=== PATIENT | female | born 1970 | race Caucasian/White ===

== ENCOUNTER 2021-01-06 15:12 | Inpatient (IN) ==
[2021-01-06] MEDS ORDERED: Lidocaine -MPF 2% 5 ML VIAL ONE (19:21)
[2021-01-06] MEDS ORDERED: *HR* Succinylcholine 200 MG/10 ML VIAL IVP ONE (19:21)
[2021-01-06] MEDS ORDERED: Ondansetron 4 MG/2 ML VIAL ONE (19:21)
[2021-01-06] MEDS ORDERED: Lidocaine -MPF 4% 5 ML AMPUL ONE (19:21)
[2021-01-06] MEDS ORDERED: *HR* Propofol 200 MG/20 ML VIAL IVP ONE (19:21)
[2021-01-06] MEDS ORDERED: *HR* FentaNYL (PF) 100 MCG/2 ML VIAL ONE (19:21)
[2021-01-06] MEDS ORDERED: *HR* Meperidine 25 MG/ML SYRINGE IVP PRN (19:48)
[2021-01-06] MEDS ORDERED: *HR* FentaNYL (PF) 100 MCG/2 ML VIAL IVP PRN (19:48)
[2021-01-06] MEDS ORDERED: Albuterol 2.5 MG/3 ML NEBULIZER IH PRN (19:48)
[2021-01-06] MEDS ORDERED: Ondansetron 4 MG/2 ML VIAL IVP PRN (19:48)
[2021-01-06] MEDS ORDERED: Acetaminophen IV 1,000 MG/100 ML BAG IVPB ONE (20:26)
[2021-01-06] MEDS ORDERED: *HR* Magnesium Sulfate 1 GM/2 ML VIAL ONE (20:51)
[2021-01-06] MEDS ORDERED: *HR* Metoprolol 5 MG/5 ML VIAL IVP ONE (21:15)
[2021-01-06] MEDS ORDERED: *HR* Rocuronium Bromide 50 MG/5 ML VIAL ONE (21:16)
[2021-01-06] MEDS ORDERED: *HR* HYDROMORPHONE 2 MG/ML VIAL ONE (22:13)
[2021-01-07] MEDS: Ondansetron 4 MG/2 ML VIAL IVP SCH ×5 (00:36→23:49)
[2021-01-07] MEDS ORDERED: Dextrose Gel 15 GM/37.5 ML TUBE PO PRN ×2 (00:45)
[2021-01-07] MEDS ORDERED: *HR* Dextrose 50 % in Water (Syg) 50 ML SYRINGE IVP PRN (00:45)
[2021-01-07] MEDS ORDERED: D5% in Water 1,000 ML IVC PRN (00:45)
[2021-01-07] MEDS ORDERED: Naloxone 0.4 MG/ML INJ IVP PRN (00:45)
[2021-01-07] MEDS ORDERED: Acetaminophen 325 MG TABLET PO PRN (00:45)
[2021-01-07] MEDS: Insulin LISPRO 300 UNITS/3 ML VIAL SUBQ SCH ×5 (01:00→20:31)
[2021-01-07 01:17] LABS: Basophils % 0.2 %; Hematocrit 35.1 % (35.3-44.9); Hemoglobin 10.9 g/dL (11.5-15.4); Immature Granulocytes % 0.4 % (0-4); Lymphocytes % 8.2 %; Mean Corpuscular HGB Conc 31.1 g/dL (31.6-35.5); Mean Corpuscular Hemoglobin 30.8 pg (28.0-33.3); Mean Corpuscular Volume 99.2 fL (83.0-100.0); Mean Platelet Volume 10.3 fL (9.4-12.4); Monocytes # 0.9 K/mcL (0.0-1.3); Monocytes % 6.8 %; Neutrophils # 10.5 K/mcL (1.6-8.9); Platelet Count 250 K/mcL (140-400); Red Blood Count 3.54 M/mcL (3.82-4.97); Red Cell Distribution Width 14.2 % (11.5-14.5); Segmented Neutrophils % 84.4 %; White Blood Count 12.4 K/mcL (4.3-11.1)
[2021-01-07 01:29] LABS: INR 3.1
[2021-01-07 01:31] LABS: Activated Partial Thrombo Time 61.4 Seconds (26.0-36.0)
[2021-01-07 01:35] LABS: Alanine Aminotransferase 8 Units/L (7-52); Alkaline Phosphatase 51 Units/L (34-104); Aspartate Amino Transferase 13 Units/L (13-39); BUN/Creatinine Ratio 17 (6-26); Bilirubin,Total 1.1 mg/dL (0.3-1.0); Blood Urea Nitrogen 15 mg/dL (6-20); Calcium 8.5 mg/dL (8.6-10.3); Carbon Dioxide 21 mEq/L (23-29); Chloride 109 mEq/L (98-107); Chol/HDL Ratio 3.1 (0-4.9); Cholesterol 115 mg/dL (< 200); Glucose 125 mg/dL (70-105); HDL Cholesterol 37 mg/dL (40-59); Iron 11 mcg/dL (50-170); LDL Cholesterol,Calculated 64 mg/dL (< 100); Osmolality,Calculated 288 (280-300); Potassium 3.7 mEq/L (3.5-5.1); Sodium 138 mEq/L (136-145); Triglycerides 71 mg/dL (< 150); eGFR For African Americans > 60 (> 60); eGFR For Non-African Americans > 60 (> 60)
[2021-01-07 01:40] LABS: Estimated Average Glucose 200 mg/dl; Hemoglobin A1C 8.6 %
[2021-01-07 01:52] LABS: Ferritin 116 ng/mL (10-120)
[2021-01-07] MEDS ORDERED: Albumin 25% 25gram/100mL 25 GM/100 ML IV.SOLN IVPB ONE (01:54)
[2021-01-07 02:03] LABS: Folate > 22.3 ng/mL (3.0-16.0); Vitamin B12 145 pg/mL (250-1100)
[2021-01-07 03:47] LABS: % Iron Saturation 3 % (15-50); Transferrin 275 mg/dL (203-362)
[2021-01-07] MEDS ORDERED: Acetaminophen IV 1,000 MG/100 ML BAG IVPB ONE (05:45)
[2021-01-07] MEDS: Piperacillin/Tazobactam 3.375 GM in 0.9 % Sodium Chloride Mini Bag 100 ML IVPB SCH ×3 (08:47→23:49)
[2021-01-07] MEDS: *HR* OxyCODONE Immed Rel 5 MG TABLET PO PRN ×3 (08:47→23:49)
[2021-01-07] MEDS ORDERED: *HR* Pioglitazone 45 MG TABLET PO SCH (09:00)
[2021-01-07] MEDS: *HR* HYDROcodone/Acet 5/325 mg TABLET PO PRN ×2 (11:56→18:09)
[2021-01-07] MEDS: Cyanocobalamin (B-12) 1,000 MCG TABLET PO SCH (12:23)
[2021-01-07] MEDS: Iron Sucrose Complex 250 MG in 0.9 % Sodium Chloride 250 ML IVPB SCH (12:24)
[2021-01-07] MEDS ORDERED: Warfarin perPT PO PRN (18:00)
[2021-01-07] MEDS ORDERED: *HR* Warfarin 5 MG TABLET PO ONE (18:00)
[2021-01-07 19:07] LABS: Hemoglobin 10.2 g/dL (11.5-15.4)
[2021-01-07] MEDS ORDERED: Piperacillin/Tazobactam 3.375 GM in 0.9 % Sodium Chloride Mini Bag 100 ML IVPB ONE (20:33)
[2021-01-08] MEDS: *HR* HYDROcodone/Acet 5/325 mg TABLET PO PRN (04:57)
[2021-01-08] MEDS: *HR* OxyCODONE Immed Rel 5 MG TABLET PO PRN ×3 (06:08→22:21)
[2021-01-08] MEDS: Ondansetron 4 MG/2 ML VIAL IVP SCH ×2 (06:09→14:25)
[2021-01-08 07:24] LABS: Hematocrit 23.9 % (35.3-44.9); Mean Corpuscular HGB Conc 30.5 g/dL (31.6-35.5); Mean Corpuscular Hemoglobin 29.8 pg (28.0-33.3); Mean Corpuscular Volume 97.6 fL (83.0-100.0); Mean Platelet Volume 10.9 fL (9.4-12.4); Platelet Count 347 K/mcL (140-400); Red Blood Count 2.45 M/mcL (3.82-4.97); Red Cell Distribution Width 13.8 % (11.5-14.5); White Blood Count 15.3 K/mcL (4.3-11.1)
[2021-01-08 07:30] LABS: Hemoglobin 7.3 g/dL (11.5-15.4)
[2021-01-08 07:52] LABS: INR 4.7; Prothrombin Time 51.7 Seconds (9.4-12.1)
[2021-01-08] MEDS: Insulin LISPRO 300 UNITS/3 ML VIAL SUBQ SCH ×2 (08:04→14:26)
[2021-01-08 08:07] LABS: BUN/Creatinine Ratio 21 (6-26); Blood Urea Nitrogen 23 mg/dL (6-20); Calcium 8.9 mg/dL (8.6-10.3); Carbon Dioxide 20 mEq/L (23-29); Chloride 105 mEq/L (98-107); Glucose 172 mg/dL (70-105); Osmolality,Calculated 290 (280-300); Potassium 4.2 mEq/L (3.5-5.1); Sodium 136 mEq/L (136-145); eGFR For African Americans > 60 (> 60); eGFR For Non-African Americans 53 (> 60)
[2021-01-08] MEDS: Iron Sucrose Complex 250 MG in 0.9 % Sodium Chloride 250 ML IVPB SCH (08:08)
[2021-01-08] MEDS: Cyanocobalamin (B-12) 1,000 MCG TABLET PO SCH (08:08)
[2021-01-08] MEDS: Piperacillin/Tazobactam 3.375 GM in 0.9 % Sodium Chloride Mini Bag 100 ML IVPB SCH (08:09)
[2021-01-08] MEDS ORDERED: *HR* Phytonadione 5 MG TABLET PO STA (08:48)
[2021-01-08] MEDS ORDERED: *HR* HYDROmorphone (PF) 1 MG/ML SYRINGE IVP ONE (09:01)
[2021-01-08] MEDS ORDERED: Simethicone 80 MG TAB.CHEW PO ONE (09:02)
[2021-01-08] MEDS ORDERED: 0.9 % Sodium Chloride 250 ML ONE ×2 (09:40→18:06)
[2021-01-08 16:23] LABS: Hematocrit 19.2 % (35.3-44.9); Hemoglobin 6.3 g/dL (11.5-15.4)
[2021-01-08] MEDS ORDERED: Lidocaine HCL 4 ML Topical Solution (Laryng-O-Jet Kit Sterile Pak) TP ONE (17:42)
[2021-01-08] MEDS ORDERED: *HR* Propofol 200 MG/20 ML VIAL IVP ONE (17:42)
[2021-01-08] MEDS ORDERED: *HR* Succinylcholine 200 MG/10 ML VIAL IVP ONE (17:46)
[2021-01-08] MEDS ORDERED: Lidocaine -MPF 2% 2 ML VIAL ONE (17:46)
[2021-01-08] MEDS ORDERED: *HR* Rocuronium Bromide 50 MG/5 ML VIAL ONE (17:46)
[2021-01-08] MEDS ORDERED: *HR* Vasopressin 20 UNIT/ML VIAL ONE (18:13)
[2021-01-08] MEDS ORDERED: Albumin Human 5% 0 GM/0 ML IV.SOLN ONE (18:13)
[2021-01-08] MEDS ORDERED: *HR* Midazolam HCl 2 MG/2 ML VIAL ONE (18:36)
[2021-01-08] MEDS ORDERED: *HR* FentaNYL (PF) 100 MCG/2 ML VIAL ONE ×2 (18:36→20:26)
[2021-01-08] MEDS ORDERED: Lacri-Lube 3.5 GM TUBE ONE (18:51)
[2021-01-08] MEDS ORDERED: *HR* Etomidate 40 MG/20 ML VIAL IVP ONE (18:51)
[2021-01-08] MEDS ORDERED: Heparin 1,000 UNITS/500 mL 500 ML ONE (18:54)
[2021-01-08 19:42] LABS: ABG Base Excess -4 mEq/L (-2 to 3); ABG HCO3 21 mEq/L (21-27); ABG Oxygen Saturation 100 % (95-98); ABG PCO2 41 mmHg (35-45); ABG PH 7.33 pH Units (7.32-7.45); ABG PO2 484 mmHg (85-104); ABG TCO2 23 mEq/L (20-26)
[2021-01-08 19:43] LABS: Basophils % 0.1 %; Eosinophils % 0.1 %; Hemoglobin 7.1 g/dL (11.5-15.4); Immature Granulocytes % 1.3 % (0-4); Lymphocytes # 1.6 K/mcL (0.6-4.6); Lymphocytes % 9.8 %; Mean Corpuscular HGB Conc 30.9 g/dL (31.6-35.5); Mean Corpuscular Volume 93.9 fL (83.0-100.0); Mean Platelet Volume 10.5 fL (9.4-12.4); Monocytes # 1.9 K/mcL (0.0-1.3); Monocytes % 11.1 %; Nucleated Red Blood Cells 0.1 /100 WBC (0); Platelet Count 321 K/mcL (140-400); Red Blood Count 2.45 M/mcL (3.82-4.97); Red Cell Distribution Width 14.4 % (11.5-14.5); Segmented Neutrophils % 77.6 %; White Blood Count 16.8 K/mcL (4.3-11.1)
[2021-01-08] MEDS ORDERED: Ondansetron 4 MG/2 ML VIAL ONE (19:59)
[2021-01-08 20:02] LABS: Calcium 8.3 mg/dL (8.6-10.3); INR 4.8; Magnesium 1.9 mg/dL (1.6-2.6); Potassium 4.7 mEq/L (3.5-5.1); Prothrombin Time 52.8 Seconds (9.4-12.1)
[2021-01-08] MEDS ORDERED: 0.9 % Sodium Chloride 1,000 ML IVC SCH (20:30)
[2021-01-08] MEDS ORDERED: *HR* FentaNYL (PF) 100 MCG/2 ML VIAL IVP PRN (20:52)
[2021-01-08] MEDS ORDERED: Ondansetron 4 MG/2 ML VIAL IVP PRN (20:52)
[2021-01-08] MEDS ORDERED: Albuterol 2.5 MG/3 ML NEBULIZER IH PRN (20:52)
[2021-01-08] MEDS ORDERED: 0.9 % Sodium Chloride 500 ML ONE (21:08)
[2021-01-08] MEDS ORDERED: *HR* Dextrose 50 % in Water (Syg) 50 ML SYRINGE IVP PRN (22:57)
[2021-01-08] MEDS ORDERED: Naloxone 0.4 MG/ML INJ IVP PRN (22:57)
[2021-01-08] MEDS ORDERED: D5% in Water 1,000 ML IVC PRN (22:57)
[2021-01-08] MEDS ORDERED: Dextrose Gel 15 GM/37.5 ML TUBE PO PRN ×2 (22:57)
[2021-01-08] MEDS ORDERED: *HR* HYDROcodone/Acet 5/325 mg TABLET PO PRN (22:57)
[2021-01-08 23:10] LABS: Hematocrit 22.6 % (35.3-44.9); Hemoglobin 7.4 g/dL (11.5-15.4); Mean Corpuscular HGB Conc 32.7 g/dL (31.6-35.5); Mean Corpuscular Hemoglobin 30.2 pg (28.0-33.3); Mean Corpuscular Volume 92.2 fL (83.0-100.0); Mean Platelet Volume 10.4 fL (9.4-12.4); Platelet Count 234 K/mcL (140-400); Red Blood Count 2.45 M/mcL (3.82-4.97); Red Cell Distribution Width 14.2 % (11.5-14.5); White Blood Count 13.6 K/mcL (4.3-11.1)
[2021-01-09 00:26] LABS: INR 2.5; Prothrombin Time 27.2 Seconds (9.4-12.1)
[2021-01-09] MEDS: 0.9 % Sodium Chloride 1,000 ML IVC SCH ×2 (00:54→15:46)
[2021-01-09] MEDS: Piperacillin/Tazobactam 3.375 GM in 0.9 % Sodium Chloride Mini Bag 100 ML IVPB SCH ×4 (00:56→23:38)
[2021-01-09] MEDS: Ondansetron 4 MG/2 ML VIAL IVP SCH ×5 (00:57→23:38)
[2021-01-09] MEDS ORDERED: *HR* Heparin 5,000 UNIT/ML VIAL IVP PRN ×2 (03:11)
[2021-01-09] MEDS ORDERED: Heparin 25,000UNIT/250ML 1/2NS 25,000 UNIT/250 ML IV.SOLN IVC SCH (03:15)
[2021-01-09] MEDS: *HR* OxyCODONE Immed Rel 5 MG TABLET PO PRN ×3 (04:10→20:36)
[2021-01-09 04:54] LABS: Hematocrit 21.1 % (35.3-44.9); Hemoglobin 6.9 g/dL (11.5-15.4); Mean Corpuscular HGB Conc 32.7 g/dL (31.6-35.5); Mean Corpuscular Hemoglobin 30.3 pg (28.0-33.3); Mean Corpuscular Volume 92.5 fL (83.0-100.0); Mean Platelet Volume 10.6 fL (9.4-12.4); Platelet Count 256 K/mcL (140-400); Red Blood Count 2.28 M/mcL (3.82-4.97); Red Cell Distribution Width 14.9 % (11.5-14.5)
[2021-01-09 05:09] LABS: Calcium 9.2 mg/dL (8.6-10.3); Potassium 4.3 mEq/L (3.5-5.1)
[2021-01-09] MEDS ORDERED: 0.9 % Sodium Chloride 250 ML ONE ×2 (06:34→08:50)
[2021-01-09] MEDS: Cyanocobalamin (B-12) 1,000 MCG TABLET PO SCH (09:41)
[2021-01-09] MEDS: Multivit/Ca/Min/Fe/FA 1 TAB TABLET PO SCH (09:41)
[2021-01-09] MEDS: Insulin LISPRO 300 UNITS/3 ML VIAL SUBQ SCH ×5 (09:50→23:52)
[2021-01-09] MEDS ORDERED: *HR* Promethazine 25 MG/ML VIAL IM ONE (10:01)
[2021-01-09] MEDS: *HR* HYDROmorphone 2 MG/ML SYRINGE IVP PRN ×3 (13:36→23:48)
[2021-01-09] MEDS ORDERED: Isovue-370 500 ML BOTTLE IVP ONE (13:36)
[2021-01-09 15:33] LABS: Hematocrit 22.3 % (35.3-44.9); Hemoglobin 7.3 g/dL (11.5-15.4)
[2021-01-09 15:43] LABS: INR 3.3; Prothrombin Time 36.1 Seconds (9.4-12.1)
[2021-01-09] MEDS ORDERED: 0.9 % Sodium Chloride 250 ML IVC SCH (16:00)
[2021-01-09 16:11] LABS: Albumin 2.8 g/dL (3.5-5.7); Bilirubin,Direct 0.3 mg/dL (0.0-0.2); Bilirubin,Indirect 0.5 mg/dL (0.0-1.0); Bilirubin,Total 0.8 mg/dL (0.3-1.0); Globulin 2.8 g/dL (2.4-3.5); Total Protein 5.6 g/dL (6.4-8.9)
[2021-01-09] MEDS ORDERED: D5% in Water 1,000 ML IVC PRN (17:04)
[2021-01-09] MEDS ORDERED: Dextrose Gel 15 GM/37.5 ML TUBE PO PRN ×2 (17:04)
[2021-01-09] MEDS ORDERED: *HR* Dextrose 50 % in Water (Syg) 50 ML SYRINGE IVP PRN (17:04)
[2021-01-09] MEDS: Pantoprazole 40 MG VIAL IVP SCH (17:38)
[2021-01-09] MEDS ORDERED: Chloraseptic Spray 177 ML BOTTLE MM PRN (20:45)
[2021-01-09] MEDS ORDERED: Insulin LISPRO 300 UNITS/3 ML VIAL SUBQ SCH (21:00)
[2021-01-10] MEDS: 0.9 % Sodium Chloride 1,000 ML IVC SCH ×2 (02:22→18:09)
[2021-01-10] MEDS: *HR* OxyCODONE Immed Rel 5 MG TABLET PO PRN ×2 (03:39→13:34)
[2021-01-10 04:40] LABS: Basophils # 0.1 K/mcL (0.0-0.2); Basophils % 0.4 %; Hematocrit 23.2 % (35.3-44.9); Hemoglobin 7.7 g/dL (11.5-15.4); Immature Granulocytes % 4.7 % (0-4); Lymphocytes # 1.9 K/mcL (0.6-4.6); Lymphocytes % 13.4 %; Mean Corpuscular HGB Conc 33.2 g/dL (31.6-35.5); Mean Corpuscular Hemoglobin 30.6 pg (28.0-33.3); Mean Corpuscular Volume 92.1 fL (83.0-100.0); Monocytes # 1.3 K/mcL (0.0-1.3); Monocytes % 9.6 %; Nucleated Red Blood Cells 0.7 /100 WBC (0); Platelet Count 276 K/mcL (140-400); Red Blood Count 2.52 M/mcL (3.82-4.97); Red Cell Distribution Width 14.7 % (11.5-14.5); Segmented Neutrophils % 71.9 %; White Blood Count 13.9 K/mcL (4.3-11.1)
[2021-01-10 04:42] LABS: INR 2.5; Prothrombin Time 28.1 Seconds (9.4-12.1)
[2021-01-10 04:56] LABS: Alanine Aminotransferase 9 Units/L (7-52); Albumin 2.8 g/dL (3.5-5.7); Alkaline Phosphatase 54 Units/L (34-104); Aspartate Amino Transferase 11 Units/L (13-39); BUN/Creatinine Ratio 29 (6-26); Bilirubin,Direct 0.3 mg/dL (0.0-0.2); Bilirubin,Indirect 0.6 mg/dL (0.0-1.0); Bilirubin,Total 0.9 mg/dL (0.3-1.0); Blood Urea Nitrogen 32 mg/dL (6-20); Calcium 9.2 mg/dL (8.6-10.3); Carbon Dioxide 25 mEq/L (23-29); Chloride 105 mEq/L (98-107); Globulin 2.9 g/dL (2.4-3.5); Glucose 198 mg/dL (70-105); Magnesium 2.2 mg/dL (1.6-2.6); Osmolality,Calculated 298 (280-300); Sodium 138 mEq/L (136-145); Total Protein 5.7 g/dL (6.4-8.9); eGFR For African Americans > 60 (> 60); eGFR For Non-African Americans 52 (> 60)
[2021-01-10 05:14] LABS: Anisocytosis 1+ (Not Present); Platelet Estimate Normal (Normal); Polychromasia 1+ (Not Present)
[2021-01-10] MEDS: Insulin LISPRO 300 UNITS/3 ML VIAL SUBQ SCH ×3 (05:22→18:59)
[2021-01-10] MEDS: Ondansetron 4 MG/2 ML VIAL IVP SCH ×3 (05:36→18:09)
[2021-01-10] MEDS: Pantoprazole 40 MG VIAL IVP SCH ×2 (05:36→18:09)
[2021-01-10] MEDS: *HR* HYDROmorphone 2 MG/ML SYRINGE IVP PRN ×2 (07:42→18:10)
[2021-01-10] MEDS: Multivit/Ca/Min/Fe/FA 1 TAB TABLET PO SCH (07:48)
[2021-01-10] MEDS: Cyanocobalamin (B-12) 1,000 MCG TABLET PO SCH (07:48)
[2021-01-10] MEDS: Piperacillin/Tazobactam 3.375 GM in 0.9 % Sodium Chloride Mini Bag 100 ML IVPB SCH ×2 (07:49→18:08)
[2021-01-10 16:49] LABS: Hematocrit 23.8 % (35.3-44.9); Hemoglobin 7.6 g/dL (11.5-15.4)
[2021-01-11] MEDS: *HR* HYDROmorphone 2 MG/ML SYRINGE IVP PRN ×4 (00:18→22:28)
[2021-01-11] MEDS: Insulin LISPRO 300 UNITS/3 ML VIAL SUBQ SCH ×5 (00:18→23:11)
[2021-01-11] MEDS: Piperacillin/Tazobactam 3.375 GM in 0.9 % Sodium Chloride Mini Bag 100 ML IVPB SCH ×4 (00:19→23:11)
[2021-01-11] MEDS: Ondansetron 4 MG/2 ML VIAL IVP SCH ×5 (00:19→23:11)
[2021-01-11 00:47] LABS: Hematocrit 24.2 % (35.3-44.9); Hemoglobin 7.7 g/dL (11.5-15.4); Mean Corpuscular HGB Conc 31.8 g/dL (31.6-35.5); Mean Corpuscular Hemoglobin 30.2 pg (28.0-33.3); Mean Corpuscular Volume 94.9 fL (83.0-100.0); Mean Platelet Volume 9.5 fL (9.4-12.4); Nucleated Red Blood Cells 1.8 /100 WBC (0); Platelet Count 276 K/mcL (140-400); Red Blood Count 2.55 M/mcL (3.82-4.97); Red Cell Distribution Width 15.1 % (11.5-14.5); White Blood Count 14.1 K/mcL (4.3-11.1)
[2021-01-11 00:58] LABS: INR 1.7; Prothrombin Time 19.1 Seconds (9.4-12.1)
[2021-01-11 01:08] LABS: BUN/Creatinine Ratio 28 (6-26); Blood Urea Nitrogen 26 mg/dL (6-20); Calcium 8.9 mg/dL (8.6-10.3); Carbon Dioxide 25 mEq/L (23-29); Chloride 108 mEq/L (98-107); Glucose 145 mg/dL (70-105); Magnesium 1.9 mg/dL (1.6-2.6); Osmolality,Calculated 301 (280-300); Potassium 4.2 mEq/L (3.5-5.1); Sodium 142 mEq/L (136-145); eGFR For African Americans > 60 (> 60); eGFR For Non-African Americans > 60 (> 60)
[2021-01-11 01:09] LABS: Anisocytosis 1+ (Not Present); Platelet Estimate Normal (Normal); Reactive Lymphocytes Present (Not Present); Toxic Granulation Present (Not Present)
[2021-01-11 01:10] LABS: Poikilocytosis 1+ (Not Present)
[2021-01-11 01:11] LABS: Lymphocytes # 1.7 K/mcL (0.6-4.6); Monocytes # 0.6 K/mcL (0.0-1.3); Neutrophils # 10.4 K/mcL (1.6-8.9)
[2021-01-11] MEDS: 0.9 % Sodium Chloride 1,000 ML IVC SCH ×3 (04:51→22:28)
[2021-01-11] MEDS: Pantoprazole 40 MG VIAL IVP SCH ×2 (06:11→16:57)
[2021-01-11] MEDS: Multivit/Ca/Min/Fe/FA 1 TAB TABLET PO SCH (07:26)
[2021-01-11] MEDS: Cyanocobalamin (B-12) 1,000 MCG TABLET PO SCH (07:27)
[2021-01-11] MEDS: *HR* OxyCODONE Immed Rel 5 MG TABLET PO PRN (15:02)
[2021-01-12] MEDS: *HR* HYDROmorphone 2 MG/ML SYRINGE IVP PRN ×2 (02:46→10:55)
[2021-01-12 03:20] LABS: Hematocrit 25.3 % (35.3-44.9); Hemoglobin 8.1 g/dL (11.5-15.4); Mean Corpuscular Hemoglobin 30.9 pg (28.0-33.3); Mean Corpuscular Volume 96.6 fL (83.0-100.0); Mean Platelet Volume 9.5 fL (9.4-12.4); Nucleated Red Blood Cells 1.7 /100 WBC (0); Platelet Count 338 K/mcL (140-400); Red Blood Count 2.62 M/mcL (3.82-4.97); White Blood Count 17.7 K/mcL (4.3-11.1)
[2021-01-12] MEDS ORDERED: Bismuth Subsalicylate 120 ML ORAL SUSPENSION PO PRN (03:20)
[2021-01-12 03:27] LABS: INR 1.4; Prothrombin Time 15.6 Seconds (9.4-12.1)
[2021-01-12 03:39] LABS: Alanine Aminotransferase 10 Units/L (7-52); Albumin 2.6 g/dL (3.5-5.7); Albumin/Globulin Ratio 0.8 (1.1-2.2); Alkaline Phosphatase 60 Units/L (34-104); Aspartate Amino Transferase 17 Units/L (13-39); BUN/Creatinine Ratio 20 (6-26); Bilirubin,Direct 0.4 mg/dL (0.0-0.2); Bilirubin,Indirect 0.5 mg/dL (0.0-1.0); Bilirubin,Total 0.9 mg/dL (0.3-1.0); Blood Urea Nitrogen 15 mg/dL (6-20); Calcium 8.8 mg/dL (8.6-10.3); Carbon Dioxide 27 mEq/L (23-29); Chloride 105 mEq/L (98-107); Globulin 3.1 g/dL (2.4-3.5); Glucose 157 mg/dL (70-105); Magnesium 1.8 mg/dL (1.6-2.6); Osmolality,Calculated 288 (280-300); Phosphorous 2.4 mg/dL (2.7-4.5); Potassium 4.4 mEq/L (3.5-5.1); Sodium 137 mEq/L (136-145); Total Protein 5.7 g/dL (6.4-8.9); eGFR For African Americans > 60 (> 60); eGFR For Non-African Americans > 60 (> 60)
[2021-01-12 03:56] LABS: Anisocytosis 1+ (Not Present); Lymphocytes # 2.8 K/mcL (0.6-4.6); Monocytes # 0.4 K/mcL (0.0-1.3); Neutrophils # 14.5 K/mcL (1.6-8.9); Platelet Estimate Normal (Normal); Toxic Granulation Present (Not Present)
[2021-01-12] MEDS: Insulin LISPRO 300 UNITS/3 ML VIAL SUBQ SCH ×4 (05:47→23:33)
[2021-01-12] MEDS: Pantoprazole 40 MG VIAL IVP SCH ×2 (05:51→19:01)
[2021-01-12] MEDS: Ondansetron 4 MG/2 ML VIAL IVP SCH ×4 (05:52→23:33)
[2021-01-12] MEDS: *HR* OxyCODONE Immed Rel 5 MG TABLET PO PRN ×3 (08:01→23:33)
[2021-01-12] MEDS: Multivit/Ca/Min/Fe/FA 1 TAB TABLET PO SCH (08:01)
[2021-01-12] MEDS: Cyanocobalamin (B-12) 1,000 MCG TABLET PO SCH (08:01)
[2021-01-12] MEDS: Piperacillin/Tazobactam 3.375 GM in 0.9 % Sodium Chloride Mini Bag 100 ML IVPB SCH ×3 (08:02→23:33)
[2021-01-12] MEDS ORDERED: Acetaminophen 325 MG TABLET PO PRN (15:10)
[2021-01-12 16:39] LABS: Albumin 2.7 g/dL (3.5-5.7); Albumin/Globulin Ratio 0.9 (1.1-2.2); Bilirubin,Direct 0.5 mg/dL (0.0-0.2); Bilirubin,Indirect 0.7 mg/dL (0.0-1.0); Bilirubin,Total 1.2 mg/dL (0.3-1.0); Globulin 3.1 g/dL (2.4-3.5); Total Protein 5.8 g/dL (6.4-8.9)
[2021-01-12] MEDS: traZODone 50 MG TABLET PO SCH (20:26)
[2021-01-12] MEDS: Lactobacillus 1 EACH CAP.SPRINK PO SCH (20:26)
[2021-01-12] MEDS: 0.9 % Sodium Chloride 1,000 ML IVC SCH ×2 (20:31→23:34)
[2021-01-13] MEDS ORDERED: *HR* HYDROmorphone 2 MG/ML SYRINGE IVP ONE (01:49)
[2021-01-13] MEDS: *HR* OxyCODONE Immed Rel 5 MG TABLET PO PRN ×2 (04:30→11:13)
[2021-01-13 04:56] LABS: Basophils # 0.1 K/mcL (0.0-0.2); Basophils % 0.5 %; Eosinophils % 0.2 %; Hematocrit 26.3 % (35.3-44.9); Hemoglobin 8.3 g/dL (11.5-15.4); Immature Granulocytes % 5.7 % (0-4); Lymphocytes # 1.4 K/mcL (0.6-4.6); Lymphocytes % 7.5 %; Mean Corpuscular HGB Conc 31.6 g/dL (31.6-35.5); Mean Corpuscular Hemoglobin 30.6 pg (28.0-33.3); Mean Platelet Volume 9.6 fL (9.4-12.4); Monocytes # 1.1 K/mcL (0.0-1.3); Neutrophils # 15.2 K/mcL (1.6-8.9); Nucleated Red Blood Cells 0.6 /100 WBC (0); Platelet Count 367 K/mcL (140-400); Red Blood Count 2.71 M/mcL (3.82-4.97); Red Cell Distribution Width 15.7 % (11.5-14.5); Segmented Neutrophils % 80.1 %
[2021-01-13 05:00] LABS: Platelet Estimate Normal (Normal); Toxic Granulation Present (Not Present)
[2021-01-13 05:04] LABS: INR 1.8; Prothrombin Time 20.3 Seconds (9.4-12.1)
[2021-01-13 05:12] LABS: BUN/Creatinine Ratio 16 (6-26); Blood Urea Nitrogen 11 mg/dL (6-20); Calcium 8.5 mg/dL (8.6-10.3); Carbon Dioxide 24 mEq/L (23-29); Chloride 102 mEq/L (98-107); Glucose 167 mg/dL (70-105); Magnesium 1.7 mg/dL (1.6-2.6); Osmolality,Calculated 285 (280-300); Potassium 4.1 mEq/L (3.5-5.1); Sodium 136 mEq/L (136-145); eGFR For African Americans > 60 (> 60); eGFR For Non-African Americans > 60 (> 60)
[2021-01-13] MEDS: Pantoprazole 40 MG VIAL IVP SCH ×2 (06:17→17:07)
[2021-01-13] MEDS: Insulin LISPRO 300 UNITS/3 ML VIAL SUBQ SCH ×3 (06:17→17:56)
[2021-01-13] MEDS: Ondansetron 4 MG/2 ML VIAL IVP SCH ×2 (06:17→12:28)
[2021-01-13] MEDS: Piperacillin/Tazobactam 3.375 GM in 0.9 % Sodium Chloride Mini Bag 100 ML IVPB SCH ×2 (07:49→16:59)
[2021-01-13] MEDS: Cyanocobalamin (B-12) 1,000 MCG TABLET PO SCH (07:55)
[2021-01-13] MEDS: Lactobacillus 1 EACH CAP.SPRINK PO SCH ×2 (07:55→20:46)
[2021-01-13] MEDS: Multivit/Ca/Min/Fe/FA 1 TAB TABLET PO SCH (07:57)
[2021-01-13] MEDS ORDERED: Heparin 25,000UNIT/250ML 1/2NS 25,000 UNIT/250 ML IV.SOLN IVC SCH (10:00)
[2021-01-13] MEDS ORDERED: *HR* Heparin 5,000 UNIT/ML VIAL IVP PRN ×4 (10:00→10:25)
[2021-01-13] MEDS ORDERED: Ondansetron 4 MG/2 ML VIAL IVP PRN (14:26)
[2021-01-13] MEDS ORDERED: Ketorolac 30 MG/ML VIAL IVP ONE (16:24)
[2021-01-13] MEDS ORDERED: *HR* Promethazine 25 MG/ML VIAL IM ONE (16:25)
[2021-01-13] MEDS: *HR* Metoprolol 5 MG/5 ML VIAL IVP SCH (17:04)
[2021-01-13] MEDS ORDERED: Acetaminophen IV 1,000 MG/100 ML BAG IVPB ONE (17:22)
[2021-01-13] MEDS: 0.9 % Sodium Chloride 1,000 ML IVC SCH (17:22)
[2021-01-13 18:18] LABS: Hematocrit 25.1 % (35.3-44.9); Hemoglobin 7.7 g/dL (11.5-15.4)
[2021-01-13 18:47] LABS: Heparin anti-factor XA UFH 0.07 IU/mL (0.30-0.70)
[2021-01-13 18:50] LABS: Activated Partial Thrombo Time 33.4 Seconds (26.0-36.0)
[2021-01-13] MEDS: Vancomycin 2,000 MG/520 ML IV.SOLN IVPB SCH (20:41)
[2021-01-13] MEDS: traZODone 50 MG TABLET PO SCH (20:46)
[2021-01-14] MEDS: Piperacillin/Tazobactam 3.375 GM in 0.9 % Sodium Chloride Mini Bag 100 ML IVPB SCH (00:21)
[2021-01-14] MEDS: *HR* Metoprolol 5 MG/5 ML VIAL IVP SCH ×2 (00:21→06:21)
[2021-01-14] MEDS: Insulin LISPRO 300 UNITS/3 ML VIAL SUBQ SCH (00:23)
[2021-01-14] MEDS: *HR* OxyCODONE Immed Rel 5 MG TABLET PO PRN ×2 (00:52→07:14)
[2021-01-14] MEDS ORDERED: Ketorolac 30 MG/ML VIAL IVP ONE (00:59)
[2021-01-14] MEDS: Vancomycin 2,000 MG/520 ML IV.SOLN IVPB SCH (04:54)
[2021-01-14 06:19] LABS: Basophils # 0.1 K/mcL (0.0-0.2); Basophils % 0.4 %; Eosinophils # 0.1 K/mcL (0.0-0.6); Eosinophils % 0.6 %; Hematocrit 25.2 % (35.3-44.9); Hemoglobin 7.6 g/dL (11.5-15.4); Immature Granulocytes % 4.4 % (0-4); Lymphocytes # 1.2 K/mcL (0.6-4.6); Lymphocytes % 6.4 %; Mean Corpuscular HGB Conc 30.2 g/dL (31.6-35.5); Mean Corpuscular Hemoglobin 29.6 pg (28.0-33.3); Mean Corpuscular Volume 98.1 fL (83.0-100.0); Mean Platelet Volume 9.7 fL (9.4-12.4); Monocytes # 1.1 K/mcL (0.0-1.3); Monocytes % 5.7 %; Neutrophils # 15.1 K/mcL (1.6-8.9); Nucleated Red Blood Cells 0.4 /100 WBC (0); Platelet Count 394 K/mcL (140-400); Red Blood Count 2.57 M/mcL (3.82-4.97); Red Cell Distribution Width 15.7 % (11.5-14.5); Segmented Neutrophils % 82.5 %; White Blood Count 18.4 K/mcL (4.3-11.1)
[2021-01-14] MEDS: Pantoprazole 40 MG VIAL IVP SCH (06:21)
[2021-01-14 06:41] LABS: BUN/Creatinine Ratio 15 (6-26); Blood Urea Nitrogen 14 mg/dL (6-20); Calcium 8.4 mg/dL (8.6-10.3); Carbon Dioxide 22 mEq/L (23-29); Chloride 103 mEq/L (98-107); Glucose 150 mg/dL (70-105); Magnesium 1.6 mg/dL (1.6-2.6); Osmolality,Calculated 283 (280-300); Phosphorous 2.9 mg/dL (2.7-4.5); Potassium 3.6 mEq/L (3.5-5.1); Sodium 135 mEq/L (136-145); eGFR For African Americans > 60 (> 60); eGFR For Non-African Americans > 60 (> 60)
[2021-01-14 06:55] VITALS: BP 106/57; PULSE 98; TEMP 98.3; O2SAT 93
[2021-01-14] MEDS: 0.9 % Sodium Chloride 1,000 ML IVC SCH (07:25)
[2021-01-14 08:18] LABS: Triglycerides 158 mg/dL (< 150)
[2021-01-14] MEDS ORDERED: Vancomycin 1,500 MG/265 ML IV.SOLN IVPB SCH (17:00)
== END 2021-01-14 08:15 | disposition short-term general hospital (02) | DRG 853 ==
LOC: 3ANU → SUATTDRO 18:33 → 2NENU 01-08 19:10
PROVIDERS: ADMIT Student in an Organized Health Care Education/Training Program; ATTEND Pharmacist

== ENCOUNTER 2021-03-08 13:36 | Inpatient (IN) ==
[2021-03-08] MEDS ORDERED: Ondansetron 4 MG/2 ML VIAL IVP PRN (17:41)
[2021-03-08] MEDS ORDERED: Naloxone 0.4 MG/ML INJ IVP PRN (17:41)
[2021-03-08] MEDS ORDERED: Ipratropium/Albuterol Neb 3 ML IH PRN (17:43)
[2021-03-08] MEDS ORDERED: Dextrose Gel 15 GM/37.5 ML TUBE PO PRN ×2 (18:06)
[2021-03-08] MEDS ORDERED: *HR* Dextrose 50 % in Water (Syg) 50 ML SYRINGE IVP PRN (18:06)
[2021-03-08] MEDS ORDERED: D5% in Water 1,000 ML IVC PRN (18:06)
[2021-03-08] MEDS: Cefepime HCl 2,000 MG in 0.9 % Sodium Chloride Mini Bag 100 ML IVPB SCH (19:00)
[2021-03-08] MEDS: GuaiFENesin/Codeine Oral Soln 5 ML UDC PO PRN (19:00)
[2021-03-08 21:11] LABS: Basophils % 0.2 %; Eosinophils % 0.1 %; Hematocrit 29.4 % (35.3-44.9); Hemoglobin 8.7 g/dL (11.5-15.4); Immature Granulocytes % 0.6 % (0-4); Lymphocytes % 19.2 %; Mean Corpuscular HGB Conc 29.6 g/dL (31.6-35.5); Mean Corpuscular Hemoglobin 29.5 pg (28.0-33.3); Mean Corpuscular Volume 99.7 fL (83.0-100.0); Mean Platelet Volume 9.4 fL (9.4-12.4); Monocytes # 1.5 K/mcL (0.0-1.3); Monocytes % 7.3 %; Neutrophils # 14.9 K/mcL (1.6-8.9); Platelet Count 400 K/mcL (140-400); Red Blood Count 2.95 M/mcL (3.82-4.97); Red Cell Distribution Width 16.5 % (11.5-14.5); Segmented Neutrophils % 72.6 %; White Blood Count 20.5 K/mcL (4.3-11.1)
[2021-03-08 21:17] LABS: Calcium 8.5 mg/dL (8.6-10.3); Magnesium 1.3 mg/dL (1.6-2.6); Phosphorous 3.5 mg/dL (2.7-4.5); Potassium 3.8 mEq/L (3.5-5.1)
[2021-03-08 21:51] LABS: INR 5.2; Prothrombin Time 57.5 Seconds (9.4-12.1)
[2021-03-08 22:07] LABS: Adenovirus Not Detected (Not Detect); Coronavirus 229E Not Detected (Not Detect); Coronavirus HKU1 Not Detected (Not Detect); Coronavirus NL63 Not Detected (Not Detect); Coronavirus OC43 Not Detected (Not Detect)
[2021-03-08 22:08] LABS: Bordetella Pertussis Not Detected (Not Detect); Chlamydophila pneumoniae Not Detected (Not Detect); Human Metapneumovirus Not Detected (Not Detect); Human Rhinovirus/Enterovirus DETECTED (Not Detect); Influenza A Subtype 2009 H1 Not Detected (Not Detect); Influenza B Not Detected (Not Detect); Mycoplasma pneumoniae Not Detected (Not Detect); Parainfluenza Virus 1 Not Detected (Not Detect); Parainfluenza Virus 2 Not Detected (Not Detect); Parainfluenza Virus 3 Not Detected (Not Detect); Parainfluenza Virus 4 Not Detected (Not Detect); Respiratory Syncytial Virus DETECTED (Not Detect)
[2021-03-08 22:12] LABS: SARS-CoV-2 DETECTED (Not Detect)
[2021-03-09] MEDS: Cefepime HCl 2,000 MG in 0.9 % Sodium Chloride Mini Bag 100 ML IVPB SCH ×3 (01:41→21:00)
[2021-03-09] MEDS: *HR* OxyCODONE/APAP 5/325 TABLET PO PRN ×2 (01:44→21:01)
[2021-03-09] MEDS: GuaiFENesin/Codeine Oral Soln 5 ML UDC PO PRN ×4 (02:05→23:51)
[2021-03-09 05:19] LABS: Basophils % 0.2 %; Eosinophils # 0.1 K/mcL (0.0-0.6); Eosinophils % 0.5 %; Hematocrit 29.3 % (35.3-44.9); Hemoglobin 8.5 g/dL (11.5-15.4); Immature Granulocytes % 0.6 % (0-4); Lymphocytes # 1.9 K/mcL (0.6-4.6); Lymphocytes % 11.9 %; Mean Corpuscular Hemoglobin 29.3 pg (28.0-33.3); Mean Platelet Volume 9.5 fL (9.4-12.4); Monocytes # 0.6 K/mcL (0.0-1.3); Monocytes % 3.9 %; Neutrophils # 13.3 K/mcL (1.6-8.9); Platelet Count 364 K/mcL (140-400); Red Cell Distribution Width 16.5 % (11.5-14.5); Segmented Neutrophils % 82.9 %; White Blood Count 16.1 K/mcL (4.3-11.1)
[2021-03-09 05:31] LABS: INR 4.8; Prothrombin Time 52.4 Seconds (9.4-12.1)
[2021-03-09 05:38] LABS: Calcium 8.7 mg/dL (8.6-10.3); Magnesium 1.7 mg/dL (1.6-2.6); Potassium 3.9 mEq/L (3.5-5.1)
[2021-03-09] MEDS ORDERED: Famotidine 20 MG/2 ML VIAL IVP SCH ×2 (05:53→22:52)
[2021-03-09] MEDS: *HR* Phytonadione 5 MG TABLET PO ONE ×2 (08:12→08:40)
[2021-03-09] MEDS: Insulin LISPRO 300 UNITS/3 ML VIAL SUBQ SCH ×3 (11:11→17:25)
[2021-03-09] MEDS ORDERED: Acetaminophen 325 MG TABLET PO PRN (12:36)
[2021-03-09] MEDS: *HR* LORazepam 2 MG/ML VIAL IVP PRN ×2 (13:59→21:00)
[2021-03-09] MEDS ORDERED: Ipratropium/Albuterol Neb 3 ML IH SCH (16:00)
[2021-03-09 16:55] LABS: Hematocrit 27.7 % (35.3-44.9); Hemoglobin 8.2 g/dL (11.5-15.4)
[2021-03-09 17:14] LABS: INR 4.6
[2021-03-09] MEDS: Ipratropium 1 PUFF INHALER IH SCH ×2 (20:11→23:42)
[2021-03-09] MEDS: gemfibroziL 600 MG TABLET PO SCH (21:01)
[2021-03-10] MEDS: Ipratropium 1 PUFF INHALER IH SCH ×6 (04:02→23:53)
[2021-03-10 04:21] LABS: Basophils % 0.2 %; Eosinophils % 0.1 %; Hematocrit 26.5 % (35.3-44.9); Immature Granulocytes % 1.3 % (0-4); Lymphocytes # 2.4 K/mcL (0.6-4.6); Mean Corpuscular HGB Conc 30.2 g/dL (31.6-35.5); Mean Corpuscular Hemoglobin 30.4 pg (28.0-33.3); Mean Corpuscular Volume 100.8 fL (83.0-100.0); Mean Platelet Volume 9.6 fL (9.4-12.4); Monocytes # 0.9 K/mcL (0.0-1.3); Monocytes % 6.9 %; Platelet Count 360 K/mcL (140-400); Red Blood Count 2.63 M/mcL (3.82-4.97); Red Cell Distribution Width 16.2 % (11.5-14.5); Segmented Neutrophils % 72.5 %; White Blood Count 12.4 K/mcL (4.3-11.1)
[2021-03-10 04:39] LABS: Albumin 2.5 g/dL (3.5-5.7); Albumin/Globulin Ratio 0.6 (1.1-2.2); Bilirubin,Total 0.3 mg/dL (0.3-1.0); Calcium 9.1 mg/dL (8.6-10.3); Globulin 4.2 g/dL (2.4-3.5); Magnesium 1.9 mg/dL (1.6-2.6); Potassium 3.5 mEq/L (3.5-5.1); Total Protein 6.7 g/dL (6.4-8.9)
[2021-03-10] MEDS: Insulin LISPRO 300 UNITS/3 ML VIAL SUBQ SCH ×3 (08:24→16:01)
[2021-03-10] MEDS: Cefepime HCl 2,000 MG in 0.9 % Sodium Chloride Mini Bag 100 ML IVPB SCH ×2 (08:50→20:40)
[2021-03-10] MEDS: Famotidine 20 MG/2 ML VIAL IVP SCH (08:50)
[2021-03-10] MEDS: Folic Acid 1 MG TABLET PO SCH (08:50)
[2021-03-10] MEDS: Multivit/Ca/Min/Fe/FA 1 TAB TABLET PO SCH (08:51)
[2021-03-10] MEDS: Torsemide 20 MG TABLET PO SCH (08:51)
[2021-03-10] MEDS: gemfibroziL 600 MG TABLET PO SCH ×2 (08:51→20:41)
[2021-03-10] MEDS: GuaiFENesin/Codeine Oral Soln 5 ML UDC PO PRN ×2 (08:51→20:41)
[2021-03-10] MEDS: *HR* LORazepam 2 MG/ML VIAL IVP PRN ×2 (09:01→20:42)
[2021-03-10 09:08] LABS: INR 4.1
[2021-03-10] MEDS: *HR* OxyCODONE/APAP 5/325 TABLET PO PRN (20:41)
[2021-03-11] MEDS: *HR* OxyCODONE/APAP 5/325 TABLET PO PRN (03:33)
[2021-03-11] MEDS: GuaiFENesin/Codeine Oral Soln 5 ML UDC PO PRN (03:33)
[2021-03-11] MEDS: Ipratropium 1 PUFF INHALER IH SCH ×3 (04:03→11:57)
[2021-03-11 04:04] LABS: Basophils % 0.4 %; Eosinophils # 0.1 K/mcL (0.0-0.6); Eosinophils % 0.5 %; Hematocrit 27.2 % (35.3-44.9); Immature Granulocytes % 2.2 % (0-4); Lymphocytes % 26.3 %; Mean Corpuscular HGB Conc 29.4 g/dL (31.6-35.5); Mean Corpuscular Hemoglobin 29.7 pg (28.0-33.3); Mean Corpuscular Volume 101.1 fL (83.0-100.0); Mean Platelet Volume 9.6 fL (9.4-12.4); Monocytes # 0.7 K/mcL (0.0-1.3); Monocytes % 6.6 %; Neutrophils # 7.2 K/mcL (1.6-8.9); Nucleated Red Blood Cells 0.2 /100 WBC (0); Platelet Count 356 K/mcL (140-400); Red Blood Count 2.69 M/mcL (3.82-4.97); Red Cell Distribution Width 16.3 % (11.5-14.5); White Blood Count 11.2 K/mcL (4.3-11.1)
[2021-03-11 04:10] LABS: Albumin 2.6 g/dL (3.5-5.7); Albumin/Globulin Ratio 0.7 (1.1-2.2); Bilirubin,Total 0.3 mg/dL (0.3-1.0); Calcium 8.9 mg/dL (8.6-10.3); Globulin 3.9 g/dL (2.4-3.5); Potassium 3.8 mEq/L (3.5-5.1); Total Protein 6.5 g/dL (6.4-8.9)
[2021-03-11] MEDS: Insulin LISPRO 300 UNITS/3 ML VIAL SUBQ SCH (09:54)
[2021-03-11] MEDS: Famotidine 20 MG/2 ML VIAL IVP SCH (09:55)
[2021-03-11] MEDS: Torsemide 20 MG TABLET PO SCH (09:56)
[2021-03-11] MEDS: Multivit/Ca/Min/Fe/FA 1 TAB TABLET PO SCH (09:56)
[2021-03-11] MEDS: gemfibroziL 600 MG TABLET PO SCH (09:56)
[2021-03-11] MEDS: Folic Acid 1 MG TABLET PO SCH (09:56)
[2021-03-11] MEDS: Cefepime HCl 2,000 MG in 0.9 % Sodium Chloride Mini Bag 100 ML IVPB SCH (10:18)
[2021-03-11 10:48] VITALS: BP 116/49; PULSE 82; TEMP 97.3
[2021-03-11 12:40] VITALS: O2SAT 93
[2021-03-11 13:03] LABS: INR 2.5; Prothrombin Time 27.7 Seconds (9.4-12.1)
== END 2021-03-11 16:03 | disposition home or self-care (01) | DRG 871 ==
LOC: 2NENU → SUATTDRO 18:43
PROVIDERS: ADMIT Student in an Organized Health Care Education/Training Program; ATTEND Internal Medicine